=== PATIENT | male | born 1985 ===

== ENCOUNTER 2017-01-11 12:31 | Emergency (ER) | payer SELFPAY ==
[2017-01-11 12:50] VITALS: RESP 18; TEMP 99.1
[2017-01-11] MEDS ORDERED: Sodium Chloride 0.9% 1,000 ML IV ONE (14:01)
[2017-01-11] MEDS ORDERED: Morphine 4 MG/ML VIAL IV STA (14:05)
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
[2017-01-11 14:56] LABS: BASO # 0.1 K/uL (0.0-0.2); BASO % 0.9 % (0.0-2.0); EOS # 0.1 K/uL (0.0-0.7); EOS % 1.3 % (0.0-4.0); HEMOGLOBIN 13.5 g/dL (12.0-18.0); LYMPH % 22.8 % (20.0-40.0); MEAN CELL VOLUME 88.2 fL (80.0-94.0); MEAN CORPUSCULAR HEMOGLOBIN 30.3 pg (27.0-31.0); MEAN CORPUSCULAR HGB CONC 34.3 g/dL (33.0-37.0); MEAN PLATELET VOLUME 7.9 fL (7.2-11.7); MONO # 0.7 K/uL (0.0-0.8); MONO % 8.2 % (0.0-10.0); NEUT # 5.8 K/uL (1.8-7.0); NEUT % 66.8 % (50.0-75.0); NRBC % 0.1 % (0.0-2.0); RBC 4.47 Mil/uL (4.40-5.90); RED CELL DISTRIBUTION WIDTH 12.3 % (11.5-14.5); WHITE BLOOD COUNT 8.7 K/uL (4.8-10.8)
[2017-01-11] MEDS ORDERED: Morphine 4 MG/ML VIAL ONE (15:00)
[2017-01-11] MEDS ORDERED: Sodium Chloride 0.9% 1,000 ML ONE (15:00)
[2017-01-11 15:05] LABS: PROTHROMBIN TIME 11.5 SECONDS (9.7-12.2)
[2017-01-11 15:19] LABS: ALBUMIN 4.1 g/dL (3.5-5.0)
[2017-01-11 15:22] LABS: ALB/GLOB RATIO 1.2 (1.0-2.1); ALT/SGPT 94 U/L (21-72); AST/SGOT 74 U/L (17-59); BLOOD UREA NITROGEN 14 mg/dL (9-20); CALCIUM 8.9 mg/dl (8.6-10.4); GFR AFRICAN-AMERICAN > 60; GFR NON-AFRICAN AMERICAN > 60
[2017-01-11] MEDS ORDERED: Iodixanol 320 MG/ML 100 ML BOTTLE IV ONE (16:19)
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
[2017-01-11] MEDS ORDERED: Oxycodone/Acetaminophen 5/325 mg Tab PO STA (17:32)
[2017-01-11] MEDS ORDERED: Oxycodone/Acetaminophen 5/325 mg Tab ONE (17:41)
[2017-01-11 17:45] VITALS: BP 140/77; PULSE 71
[2017-01-11 17:45] LABS: SQUAMOUS EPITHIAL < 1 /hpf (0-5); URINE BACTERIA RARE (<OCC); URINE BILIRUBIN NEGATIVE (NEGATIVE); URINE BLOOD NEGATIVE (NEGATIVE); URINE CLARITY Clear (Clear); URINE COLOR Yellow (YELLOW); URINE GLUCOSE (UA) NORMAL (Normal); URINE LEUKOCYTE ESTERASE NEG Leu/uL (Negative); URINE NITRATE NEGATIVE (NEGATIVE); URINE PROTEIN NEGATIVE (NEGATIVE); URINE UROBILINOGEN NORMAL mg/dL (0.2-1.0)
[2017-01-11 17:51] LABS: BARBITURATES, UR NEGATIVE (NEGATIVE)
[2017-01-11 17:52] LABS: BENZODIAZEPINES, UR NEGATIVE (NEGATIVE)
[2017-01-11 17:55] LABS: OPIATES, UR POSITIVE (NEGATIVE); PHENCYCLIDINE, UR NEGATIVE (NEGATIVE)
[2017-01-11 18:00] VITALS: O2SAT 96
== END 2017-01-11 17:44 | disposition home or self-care (01) ==
LOC: C.ER 12:31
DX: S30.1XXA Contusion of abdominal wall, initial encounter (principal); S16.1XXA Strain of muscle, fascia and tendon at neck level, initial encounter; V27.4XXA Motorcycle driver injured in collision with fixed or stationary object in traffic accident, initial encounter; Y92.488 Other paved roadways as the place of occurrence of the external cause
CPT/HCPCS: 70450; 70486; 71260; 72125; 73090; 74177; 80053; 81001; 84484; 85025; 85610; 85730; 96374; 99285; G0480; J2270; J2405; J7040; Q9967

== ENCOUNTER 2017-10-10 05:41 | Emergency (ER) | payer MEDICAID, OTHER ==
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
[2017-10-10 06:10] LABS: BASO # 0.2 K/uL (0.0-0.2); BASO % 1.2 % (0.0-2.0); EOS # 0.3 K/uL (0.0-0.7); EOS % 2.1 % (0.0-4.0); HEMOGLOBIN 16.4 g/dL (12.0-18.0); LYMPH # 6.2 K/uL (1.0-4.3); LYMPH % 47.3 % (20.0-40.0); MEAN CORPUSCULAR HEMOGLOBIN 30.6 pg (27.0-31.0); MEAN CORPUSCULAR HGB CONC 35.2 g/dL (33.0-37.0); MEAN PLATELET VOLUME 8.2 fL (7.2-11.7); MONO % 7.3 % (0.0-10.0); NEUT # 5.5 K/uL (1.8-7.0); NEUT % 42.1 % (50.0-75.0); NRBC % 0.2 % (0.0-2.0); RBC 5.35 Mil/uL (4.40-5.90); RED CELL DISTRIBUTION WIDTH 13.5 % (11.5-14.5); WHITE BLOOD COUNT 13.2 K/uL (4.8-10.8)
[2017-10-10] MEDS ORDERED: Sodium Chloride 0.9% 1,000 ML IV ONE (06:10)
[2017-10-10 06:22] LABS: ALB/GLOB RATIO 1.2 (1.0-2.1); ALBUMIN 4.8 g/dL (3.5-5.0); ALT/SGPT 106 U/L (21-72); AST/SGOT 239 U/L (17-59); BLOOD UREA NITROGEN 19 mg/dL (9-20); CALCIUM 8.7 mg/dl (8.6-10.4); GFR AFRICAN-AMERICAN > 60; GFR NON-AFRICAN AMERICAN > 60
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
[2017-10-10] MEDS ORDERED: Lidocaine 2% Inj (20ml) ONE ×2 (06:55→11:47)
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
[2017-10-10 09:23] VITALS: PULSE 92
[2017-10-10] MEDS ORDERED: Tdap Vaccine 0.5 ml Vial (10-64 yrs) IM ONE ×2 (12:20→12:44)
[2017-10-10 12:46] VITALS: BP 122/78; RESP 18; TEMP 98.9
--- NOTE | 2017-10-10 12:51 | RAD ---
HISTORY: Sepsis Patient COMPARISON: No prior. FINDINGS: LUNGS: Vascular overlap versus limited patchy atelectasis or infiltrate at the right infrahilar space is identified. Left chest appears clear. PLEURA: No significant pleural effusion identified, no pneumothorax apparent. CARDIOVASCULAR: Normal. OSSEOUS STRUCTURES: No significant abnormalities. VISUALIZED UPPER ABDOMEN: Normal. OTHER FINDINGS: None. IMPRESSION: Borderline airspace disease right infrahilar space versus vascular overlap.
[2017-10-10] MEDS ORDERED: Bacitracin 500 Units/gm Oint Foilpak UD ONE ×2 (13:01→13:03)
[2017-10-10 19:10] VITALS: O2SAT 97
== END 2017-10-10 13:19 | disposition home or self-care (01) ==
LOC: C.ER 05:41
DX: S01.01XA Laceration without foreign body of scalp, initial encounter (principal); Y08.89XA Assault by other specified means, initial encounter; F10.10 Alcohol abuse, uncomplicated; Y90.8 Blood alcohol level of 240 mg/100 ml or more
CPT/HCPCS: 12002; 70450; 71045; 72125; 80053; 85025; 90471; 90715; 99285; G0480

== ENCOUNTER 2017-10-25 12:18 | Emergency (ER) | payer MEDICAID ==
[2017-10-25 12:35] VITALS: BP 126/81; PULSE 61; RESP 14; TEMP 98.1; O2SAT 98
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
== END 2017-10-25 13:30 | disposition home or self-care (01) ==
LOC: C.ER 12:18
DX: Z48.02 Encounter for removal of sutures (principal)